=== PATIENT | female | born 1935 | race Caucasian/White ===

== ENCOUNTER → 2021-06-03 | Outpatient (CLI) | payer OTHER ==
[~2021-06-03] MED LIST: CALTRATE 600 +1 EAC1 PO; METOPROLOL SUCC50 MG PO; MULTIVITAMINS1 EAC1 PO; PROTONIX 40 MG40 M1 PO; SERTRALINE HCL25 MG PO; SIMVASTATIN10 MG PO
== END ==
LOC: HEART 5 08:43
DX: I07.1 Rheumatic tricuspid insufficiency (principal); I10 Essential (primary) hypertension
CPT/HCPCS: 93306

== ENCOUNTER → 2022-02-01 | Outpatient (CLI) | payer OTHER | LOC: MAMO 10:59 | DX: Z12.31 Encounter for screening mammogram for malignant neoplasm of breast (principal); E03.9 Hypothyroidism, unspecified | CPT/HCPCS: 36415; 77063; 77067; 84439; 84443 ==